=== PATIENT | male | born 1980 | race Hispanic/Latino ===

== ENCOUNTER 2018-08-13 19:02 | Emergency (ER) | payer SELFPAY ==
[~2018-08-13 19:02] MED LIST: ISOVUE-370 76%-LOCM 1 ML ONE
[2018-08-13 19:40] LABS: #Basophils 0.1 thou/uL (0.0-0.2); #Eosinphils 0.1 thou/uL (0.0-0.7); #Lymphocytes 1.7 thou/uL (1.20-3.40); #Monocytes 0.5 thou/uL (0.11-0.59); #Neutrophils 5.8 thou/uL (1.40-6.50); %Basophils 1.2 % (0.0-1.0); %Eosinophils 1.3 % (0.0-10.0); %Monocytes 5.9 % (0.0-10.0); %Neutrophils 70.7 % (42.0-75.0); Hemoglobin 15.7 g/dL (14.0-18.0); Mean Corpuscular HGB CONC 33.4 g/dL (32.0-36.0); Mean Corpuscular Hemoglobin 30.1 pg (27.0-31.0); Mean Corpuscular Volume 90.1 fL (78.0-98.0); Mean Platelet Volume 9.9 fL (7.4-10.4); Platelet Count 172 thou/uL (130-400); RBC Distribution Width 11.6 % (11.5-14.5); White Blood Cell (WBC) Count 8.2 thou/uL (4.8-10.8)
[2018-08-13] MEDS ORDERED: Adacel (T-DAP) 0.5 ML VIAL ONE (19:43)
[2018-08-13 19:54] LABS: ALT (SGPT) 22 U/L (8-55); AST (SGOT) 20 U/L (5-34); Albumin 4.7 g/dL (3.5-5.0); Alkaline Phosphatase 68 U/L (40-150); Anion Gap 13 mmol/L (10-20); BUN (Urea Nitrogen) 18 mg/dL (8.9-20.6); Bilirubin, Total 0.7 mg/dL (0.2-1.2); Calc. Creatinine Clearance 0 mL/min (70-130); Calcium 9.5 mg/dL (7.8-10.44); Carbon Dioxide 25 mmol/L (22-29); Chloride 105 mmol/L (98-107); Estimated GFR-MDRD Greater than 90; Globulin 2.6 g/dL (2.4-3.5); Glucose 98 mg/dL (70-105); Protein, Total 7.3 g/dL (6.0-8.3); Sodium 139 mmol/L (136-145)
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
[2018-08-13 20:10] LABS: Bilirubin Negative (Negative); Blood, Urine Negative (Negative); Clarity CLEAR (Clear); Glucose, Urine (Dipstick) Negative (Negative); Leukocyte Negative (Negative); Nitrite Negative (Negative); Protein, Urine (Dipstick) Negative (Neg-Trace); Specific Gravity, Urine 1.011 (1.002-1.036); Urobilinogen 0.2 mg/dL (0.2-1.0); pH, Urine 5.5 (5.0-9.0)
--- NOTE | 2018-08-13 20:16 | CT ---
CHEST CT SCAN WITH IV CONTRAST ABDOMEN AND PELVIC CT SCAN WITH IV CONTRAST THORACIC SPINE CT SCAN WITH IV CONTRAST LIMITED LUMBAR SPINE CT SCAN WITH IV CONTRAST LIMITED 08/13/18 HISTORY: CHEST, ABDOMEN AND PELVIC CT: The lungs are clear. No pneumothorax or pleural effusion. No mediastinal hematoma. The aorta appears unremarkable. Liver, pancreas, spleen, adrenal glands and kidneys are unremarkable. No free intraperitoneal fluid o r evidence of retroperitoneal hematoma. IMPRESSION: No significant acute posttraumatic process in the chest, abdomen or pelvis. THORACIC SPINE CT SCAN WITH IV CONTRAST LIMITED: IMPRESSION: No fracture or dislocation. LUMBAR SPINE CT SCAN WITH IV CONTRAST LIMITED: IMPRESSION: No fracture or dislocation or other acute process. Findings were discussed with Josefina Keller at 8 p.m. Code CR POS: TE
--- NOTE | 2018-08-13 21:05 | ULT ---
SOFT TISSUE ULTRASOUND: 08/13/18 HISTORY: 38-year-old male with history of a broken off IV catheter which is embedded within the soft tissues. There is a structure within the superficial soft tissues at the level of the antecubital fossa at the site of clinical concern which appears to represent a remnant of a catheter. This does not appear to extend within the vein. IMPRESSION: Remnant of an IV catheter within the superficial soft tissues is demonstrated but this does not appea r to extend within the adjacent vein or other vascular structure. POS: TE
[2018-08-13] MEDS ORDERED: Lidocaine 1% PF 5 ML VIAL ONE (21:09)
== END 2018-08-13 21:41 | disposition home or self-care (01) ==
LOC: ERS 19:02 → EDBD 19:02 → ERS 21:41
DX: S06.0X9A Concussion with loss of consciousness of unspecified duration, initial encounter (principal); S40.852A Superficial foreign body of left upper arm, initial encounter; S30.1XXA Contusion of abdominal wall, initial encounter; V49.50XA Passenger injured in collision with unspecified motor vehicles in traffic accident, initial encounter
CPT/HCPCS: 70450; 71260; 72125; 74177; 76999; 80053; 81003; 85025; 90471; 90715; 93005; G0390; J2001